=== PATIENT | male | born 1930 | race Hispanic/Latino ===

== ENCOUNTER 2017-11-10 14:48 | Inpatient (IN) | payer MEDICARE ==
[~2017-11-10] VITALS: Ht 165.1 cm; Wt 54.2 kg
[~2017-11-10 14:48] MED LIST: ATOR10TA69 PO; HYDR-3420 PO; ISOS30TA6 PO; METO-408 PO; PROP1DRO4 OU; SPIR25TA4 PO; TORS20TA4 PO; TRAM50TA2 PO
[2017-11-10] MEDS ORDERED: SODIUM CHLORIDE 0.9% 500ML 500 ML IV ONE (15:12)
[2017-11-10] MEDS ORDERED: KETOROLAC TROMETHAMINE 30MG/ML ONE (15:13)
[2017-11-10] MEDS ORDERED: DIAZEPAM 5 MG TABLET ONE (15:14)
[2017-11-10 15:17] LABS: BASOPHILS % (AUTO) 1.1 % (0.0-5.0); EOSINOPHILS % (AUTO) 2.3 % (0.0-8.0); HEMATOCRIT 36.2 % (42-54); MEAN CORPUSCULAR HEMOGLOBIN 31.6 pg (27.0-33.0); MEAN CORPUSCULAR HGB CONC 33.4 g/dL (32.0-36.0); MEAN CORPUSCULAR VOLUME 94.7 fL (79-99); MONOCYTES % (AUTO) 9.3 % (3.0-13.0); NEUTROPHILS % (AUTO) 71.3 % (40.0-77.0); PLATELET COUNT (AUTO) 171 K/uL (130-400); RED BLOOD CELL COUNT(AUTO) 3.83 MIL/uL (4.50-6.20); RED CELL DISTRIBUTION WIDTH 20.6 % (11.0-15.5); WHITE BLOOD COUNT (AUTO) 5.8 K/uL (4.8-10.8)
[2017-11-10 15:26] LABS: POTASSIUM 4.3 mmol/L (3.5-5.1)
[2017-11-10 15:30] LABS: ALBUMIN 2.9 g/dL (3.5-5.0); BILIRUBIN,DIRECT 0.6 mg/dL (0.0-0.3); BILIRUBIN,TOTAL 1.3 mg/dL (0.2-1.0); TOTAL PROTEIN, SERUM 8.2 g/dL (6.0-8.3)
[2017-11-10 15:38] LABS: INR 1.15 (0.85-1.15)
[2017-11-10 15:40] LABS: PARTIAL THROMBOPLASTIN TIME 28.6 SEC (26.3-35.5)
[2017-11-10 15:45] LABS: B-TYPE NATRIURETIC PEPTIDE 1550 pg/mL (0-100)
[2017-11-10] MEDS ORDERED: FUROSEMIDE 10 MG/ML 4ML VIAL ONE (16:37)
[2017-11-10 19:53] LABS: APPEARANCE,URINE Clear (CLEAR); BILIRUBIN,URINE Negative (NEGATIVE); COLOR,URINE Yellow (YELLOW); GLUCOSE, URINE (UA) Negative (NEGATIVE); KETONES,URINE Negative (NEGATIVE); LEUKOCYTE ESTERASE ,URINE Negative (NEGATIVE); NITRATE,URINE Negative (NEGATIVE); OCCULT BLOOD,URINE Nonhemolyzed Trace (NEGATIVE); PH,URINE 7.5 (5.0-8.0); PROTEIN,URINE Negative (NEGATIVE); UROBILINOGEN,URINE 0.2 mg/dL (0.2-1.0)
[2017-11-10 20:01] LABS: BACTERIA,URINE Rare /HPF (None Seen); RBC,URINE 0-1 /HPF (0-1); SQUAMOUS EPITHELIAL CELL,UR None Seen /LPF (0-2); WBC,URINE None Seen /HPF (0-1)
[2017-11-10 20:52] VITALS: BP 145/93
[2017-11-10] MEDS ORDERED: SODIUM CHLORIDE 0.9% 10 ML VIAL IVP SCH (21:30)
[2017-11-10] MEDS ORDERED: NITROGLYCERIN 0.4 MG SL TAB SL PRN (21:30)
[2017-11-10] MEDS ORDERED: CLONIDINE HCL 0.1 MG TABLET PO PRN (21:30)
[2017-11-10] MEDS ORDERED: POTASSIUM CHLORIDE 10% ELIXIR 20 MEQ/15 ML UDCUP PO PRN (21:30)
[2017-11-10] MEDS ORDERED: ACETAMINOPHEN 325 MG TAB PO PRN (21:30)
[2017-11-10] MEDS ORDERED: LACTULOSE 20 GM/30 ML UDCUP PO PRN (21:30)
[2017-11-10] MEDS ORDERED: LIDOCAINE HCL-MPF 1% 2ML VIAL IJ PRN (21:30)
[2017-11-10] MEDS ORDERED: POTASSIUM CHLORIDE 20MEQ/100ML 100 ML IV PRN (21:30)
[2017-11-10] MEDS ORDERED: IPRATROPIUM/ALBUTEROL SULFATE 3 ML SOLUTION IH PRN (23:00)
[2017-11-10 23:38] VITALS: BP 141/96
[2017-11-11] MEDS: ACETAMINOPHEN 325 MG TAB PO PRN ×2 (03:40→08:35)
[2017-11-11 03:41] VITALS: BP 153/96
[2017-11-11 04:37] LABS: HEMATOCRIT 35.8 % (42-54); MEAN CORPUSCULAR HGB CONC 33.7 g/dL (32.0-36.0); MEAN CORPUSCULAR VOLUME 95.1 fL (79-99); NUCLEATED RED BLOOD CELLS 0.1 % (0.0-0.19); PLATELET COUNT (AUTO) 177 K/uL (130-400); RED BLOOD CELL COUNT(AUTO) 3.76 MIL/uL (4.50-6.20); RED CELL DISTRIBUTION WIDTH 20.4 % (11.0-15.5); WHITE BLOOD COUNT (AUTO) 5.8 K/uL (4.8-10.8)
[2017-11-11 05:02] LABS: BAND NEUTROPHILS % (MANUAL) 17 % (0-2); EOSINOPHILS % (MANUAL) 1 % (1-6); LYMPHOCYTES % (MANUAL) 18 % (22-44); MONOCYTES % (MANUAL) 3 % (2-9); SEGMENTED NEUTROPHILS % 61 % (40-70)
[2017-11-11 05:03] LABS: MAN.DIFF COMMENT-IMPRESSION MANUAL DIFFERENTIAL; PLATELET MORPHOLOGY COMMENT ADEQUATE
[2017-11-11 05:13] LABS: B-TYPE NATRIURETIC PEPTIDE 1940 pg/mL (0-100)
[2017-11-11] MEDS: FUROSEMIDE 10 MG/ML 4ML VIAL IVP SCH ×2 (05:36→17:26)
[2017-11-11 07:20] VITALS: BP 151/96
[2017-11-11] MEDS: FAMOTIDINE 20MG TAB 20 MG TAB PO SCH (08:34)
[2017-11-11 12:10] VITALS: BP 135/87
[2017-11-11] MEDS ORDERED: PANT40TA25 PO (13:36)
[2017-11-11] MEDS ORDERED: TAMS0.4C32 PO (13:36)
[2017-11-11] MEDS ORDERED: FE F1CAP8 PO (13:36)
[2017-11-11] MEDS ORDERED: COLC0.6C3 PO (13:36)
[2017-11-11 16:10] VITALS: BP 135/85
[2017-11-11 19:39] VITALS: BP 106/79
[2017-11-11 19:40] VITALS: BP 145/81
[2017-11-12] VITALS (7 sets, daily range): BP systolic 126–153; BP diastolic 76–98
[2017-11-12] MEDS: FUROSEMIDE 10 MG/ML 4ML VIAL IVP SCH ×2 (05:08→17:44)
[2017-11-12 05:10] LABS: CREATININE 2.2 mg/dL (0.5-1.5); POTASSIUM 3.4 mmol/L (3.5-5.1)
[2017-11-12] MEDS: POTASSIUM CHLORIDE 20 MEQ ERTAB PO PRN ×2 (05:28→06:48)
[2017-11-12] MEDS: ACETAMINOPHEN 325 MG TAB PO PRN (06:29)
[2017-11-12] MEDS: FAMOTIDINE 20MG TAB 20 MG TAB PO SCH (08:35)
[2017-11-12] MEDS: METOPROLOL TARTRATE 25 MG TAB PO SCH ×2 (10:30→19:58)
[2017-11-12] MEDS: ATORVASTATIN CALCIUM 10 MG TABLET PO SCH (19:58)
[2017-11-12] MEDS: COLCHICINE 0.6 MG TABLET PO SCH (19:58)
[2017-11-12] MEDS: TAMSULOSIN HCL 0.4 MG CAP.ER.24H PO SCH (19:58)
[2017-11-12] MEDS: HYDRALAZINE HCL 10 MG TABLET PO SCH (21:00)
[2017-11-13 03:49] VITALS: BP 142/90
[2017-11-13 04:42] LABS: POTASSIUM 3.4 mmol/L (3.5-5.1)
[2017-11-13] MEDS: FUROSEMIDE 10 MG/ML 4ML VIAL IVP SCH ×2 (06:13→17:32)
[2017-11-13] MEDS: POTASSIUM CHLORIDE 20 MEQ ERTAB PO PRN (06:15)
[2017-11-13 07:32] VITALS: BP_SYST 126; BP_SYST 147; BP_DIAS 79; BP_DIAS 81
[2017-11-13] MEDS: FAMOTIDINE 20MG TAB 20 MG TAB PO SCH (09:25)
[2017-11-13] MEDS: ISOSORBIDE MONO 30MG TAB SR PO SCH (09:26)
[2017-11-13] MEDS: HYDRALAZINE HCL 10 MG TABLET PO SCH ×2 (09:26→21:00)
[2017-11-13] MEDS: SPIRONOLACTONE 25 MG TAB PO SCH (09:26)
[2017-11-13] MEDS: COLCHICINE 0.6 MG TABLET PO SCH ×2 (09:26→20:06)
[2017-11-13] MEDS: METOPROLOL TARTRATE 25 MG TAB PO SCH ×2 (09:28→23:53)
[2017-11-13 11:22] VITALS: BP 118/69
[2017-11-13 16:54] VITALS: BP 123/74
[2017-11-13 19:45] VITALS: BP 118/65
[2017-11-13] MEDS: ATORVASTATIN CALCIUM 10 MG TABLET PO SCH (20:06)
[2017-11-13] MEDS: TAMSULOSIN HCL 0.4 MG CAP.ER.24H PO SCH (20:06)
[2017-11-13 23:33] VITALS: BP 132/76
[2017-11-14 03:54] VITALS: BP 125/71
[2017-11-14 04:37] LABS: POTASSIUM 3.6 mmol/L (3.5-5.1)
[2017-11-14] MEDS: FUROSEMIDE 10 MG/ML 4ML VIAL IVP SCH ×2 (06:16→18:00)
[2017-11-14] MEDS: POTASSIUM CHLORIDE 20 MEQ ERTAB PO PRN ×2 (06:24→13:54)
[2017-11-14 07:31] VITALS: BP 128/76
[2017-11-14] MEDS: COLCHICINE 0.6 MG TABLET PO SCH ×2 (09:00→20:19)
[2017-11-14] MEDS: METOPROLOL TARTRATE 25 MG TAB PO SCH ×2 (10:16→20:20)
[2017-11-14 11:33] VITALS: BP 105/67
[2017-11-14] MEDS: ISOSORBIDE MONO 30MG TAB SR PO SCH (11:34)
[2017-11-14] MEDS: HYDRALAZINE HCL 10 MG TABLET PO SCH ×2 (11:35→20:20)
[2017-11-14] MEDS: FAMOTIDINE 20MG TAB 20 MG TAB PO SCH (11:35)
[2017-11-14] MEDS: SPIRONOLACTONE 25 MG TAB PO SCH (11:35)
[2017-11-14] MEDS: ACETAMINOPHEN 325 MG TAB PO PRN (14:03)
[2017-11-14 16:21] VITALS: BP 97/59
[2017-11-14 19:14] VITALS: BP 116/70
[2017-11-14] MEDS: ATORVASTATIN CALCIUM 10 MG TABLET PO SCH (20:19)
[2017-11-14] MEDS: TAMSULOSIN HCL 0.4 MG CAP.ER.24H PO SCH (20:20)
[2017-11-14 23:39] VITALS: BP 119/73
[2017-11-15 03:43] VITALS: BP 121/75
[2017-11-15] MEDS: FUROSEMIDE 10 MG/ML 4ML VIAL IVP SCH ×2 (05:10→17:44)
[2017-11-15 05:23] LABS: CREATININE 2.2 mg/dL (0.5-1.5); POTASSIUM 4.2 mmol/L (3.5-5.1)
[2017-11-15 07:24] VITALS: BP 126/74
[2017-11-15] MEDS: HYDRALAZINE HCL 10 MG TABLET PO SCH ×2 (08:56→21:26)
[2017-11-15] MEDS: SPIRONOLACTONE 25 MG TAB PO SCH (08:56)
[2017-11-15] MEDS: METOPROLOL TARTRATE 25 MG TAB PO SCH ×2 (08:56→21:28)
[2017-11-15] MEDS: FAMOTIDINE 20MG TAB 20 MG TAB PO SCH (08:56)
[2017-11-15] MEDS: COLCHICINE 0.6 MG TABLET PO SCH ×2 (08:56→21:27)
[2017-11-15] MEDS: ISOSORBIDE MONO 30MG TAB SR PO SCH (08:56)
[2017-11-15] MEDS: ACETAMINOPHEN 325 MG TAB PO PRN (08:57)
[2017-11-15 11:05] VITALS: BP 105/55
[2017-11-15 16:10] VITALS: BP 108/70
[2017-11-15 19:31] VITALS: BP 112/67
[2017-11-15] MEDS: ATORVASTATIN CALCIUM 10 MG TABLET PO SCH (21:26)
[2017-11-15] MEDS: TAMSULOSIN HCL 0.4 MG CAP.ER.24H PO SCH (21:27)
[2017-11-15 23:32] VITALS: BP 123/79
[2017-11-16 03:43] VITALS: BP 125/77
[2017-11-16] MEDS: FUROSEMIDE 10 MG/ML 4ML VIAL IVP SCH (06:17)
[2017-11-16 07:35] VITALS: BP 118/69
[2017-11-16] MEDS: SPIRONOLACTONE 25 MG TAB PO SCH (08:44)
[2017-11-16] MEDS: HYDRALAZINE HCL 10 MG TABLET PO SCH (08:44)
[2017-11-16] MEDS: COLCHICINE 0.6 MG TABLET PO SCH (08:44)
[2017-11-16] MEDS: METOPROLOL TARTRATE 25 MG TAB PO SCH (08:44)
[2017-11-16] MEDS: FAMOTIDINE 20MG TAB 20 MG TAB PO SCH (08:45)
[2017-11-16] MEDS: ISOSORBIDE MONO 30MG TAB SR PO SCH (08:45)
[2017-11-16] MEDS ORDERED: LIDOCAINE 5% TOPICAL PATCH TP SCH (09:00)
[2017-11-16 11:24] VITALS: BP 105/64
== END 2017-11-16 17:41 | DRG 291 ==
LOC: EDH 14:48 → INTOOBSV 19:30 → OBSVTOIN 19:30 → EDHIP 19:30 → 2DH 20:14
PROVIDERS: ADMIT Family Medicine; ATTEND Family Medicine
DX: I13.0 Hypertensive heart and chronic kidney disease with heart failure and stage 1 through stage 4 chronic kidney disease, or unspecified chronic kidney disease (principal); I50.23 Acute on chronic systolic (congestive) heart failure; J44.9 Chronic obstructive pulmonary disease, unspecified; I34.0 Nonrheumatic mitral (valve) insufficiency; E78.5 Hyperlipidemia, unspecified; G89.29 Other chronic pain; I25.10 Atherosclerotic heart disease of native coronary artery without angina pectoris; I25.2 Old myocardial infarction; N18.9 Chronic kidney disease, unspecified; N40.0 Benign prostatic hyperplasia without lower urinary tract symptoms; Z95.5 Presence of coronary angioplasty implant and graft; M43.10 Spondylolisthesis, site unspecified; M48.00 Spinal stenosis, site unspecified; M43.5X6 Other recurrent vertebral dislocation, lumbar region
CPT/HCPCS: 36415; 71046; 71250; 72100; 72148; 74176; 80048; 80076; 81001; 82550; 83880; 84484; 85025; 85610; 85730; 93005; 93306; 94664; 97039; 99291; J1885; J1940; J7040